=== PATIENT | female | born 1960 | race Caucasian/White ===

== ENCOUNTER 2020-07-18 17:06 | Inpatient (IN) | payer BC, SELFPAY ==
[~2020-07-18] VITALS: Ht 157.5 cm; Wt 72.6 kg
[2020-07-18 17:09] VITALS: Ht 157.5 cm; Wt 72.6 kg
[2020-07-18 18:01] LABS: PLATELET COUNT 192 x10^3mcL (179-408); RED CELL DISTRIBUTION WIDTH 12.7 % (12.3-17.7)
[2020-07-18 18:05] LABS: BASOPHIL % 2.5 % (0.2-1.3)
[2020-07-18 18:24] LABS: UA SPECIFIC GRAVITY >=1.030 (1.005-1.035); microscopic required? YES; urine erythrocyte NEGATIVE (NEGATIVE)
[2020-07-18 18:31] LABS: CALCIUM 8.4 mg/dL (8.5-10.1); CARBON DIOXIDE 24.6 mmol/L (21-32); CHLORIDE SERUM 97 mmol/L (98-107); GFR1 > 60 mL/min; GLUCOSE SERUM 241 mg/dL (74-106); SODIUM SERUM 134 mmol/L (136-145)
[2020-07-18 18:35] LABS: ALKALINE PHOSPHATASE 52 U/L (46-116); ALT/SGPT 47 U/L (14-59); AST/SGOT 45 U/L (15-37); BILIRUBIN TOTAL 0.5 mg/dL (0.20-1.00); C REACTIVE PROTEIN 5.9 mg/dL (<=0.9); LACTIC DEHYDROGENASE (LDH) 357 U/L (100-190); TOTAL PROTEIN, SERUM 7.3 g/dL (6.4-8.2)
[2020-07-18 18:45] LABS: ALBUMIN 3.3 g/dL (3.4-5.0)
[2020-07-18] MEDS ORDERED: GLU850 PO (19:38)
[2020-07-18] MEDS ORDERED: AZITHROMYCIN250 M1 PO (19:41)
[2020-07-18] MEDS ORDERED: TES100 PO (19:41)
[2020-07-18] MEDS ORDERED: BASAGLAR K100 UNIT/1 SQ (19:41)
[2020-07-19 10:42] LABS: BASOPHIL % 0.3 % (0.2-1.3); PLATELET COUNT 202 x10^3mcL (179-408); RED CELL DISTRIBUTION WIDTH 12.7 % (12.3-17.7)
[2020-07-19 10:56] LABS: CALCIUM 8.1 mg/dL (8.5-10.1); CARBON DIOXIDE 26.5 mmol/L (21-32); CHLORIDE SERUM 100 mmol/L (98-107); CREATININE SERUM 0.7 mg/dL (0.6-1.0); GFR1 > 60 mL/min; GLUCOSE SERUM 261 mg/dL (74-106); MAGNESIUM 1.8 mg/dL (1.8-2.4); PHOSPHOROUS 3.2 mg/dL (2.5-4.9); POTASSIUM SERUM 4.1 mmol/L (3.5-5.1); SODIUM SERUM 134 mmol/L (136-145)
[2020-07-19 13:33] VITALS: BP 118/966
[2020-07-19 13:48] VITALS: BP 123/75
[2020-07-19 17:16] VITALS: BP 115/66
[2020-07-19 22:04] VITALS: BP 110/59
[2020-07-20 05:42] VITALS: BP 108/64
[2020-07-20 08:40] VITALS: BP 90/60
[2020-07-20 09:21] LABS: BASOPHIL % 0.2 % (0.2-1.3); PLATELET COUNT 257 x10^3mcL (179-408); RED CELL DISTRIBUTION WIDTH 12.8 % (12.3-17.7)
[2020-07-20 09:31] LABS: CALCIUM 9.1 mg/dL (8.5-10.1); CARBON DIOXIDE 24.2 mmol/L (21-32); CHLORIDE SERUM 104 mmol/L (98-107); CREATININE SERUM 0.8 mg/dL (0.6-1.0); GFR1 > 60 mL/min; GLUCOSE SERUM 229 mg/dL (74-106); MAGNESIUM 2.1 mg/dL (1.8-2.4); PHOSPHOROUS 2.8 mg/dL (2.5-4.9); SODIUM SERUM 140 mmol/L (136-145)
[2020-07-20 10:29] LABS: BILIRUBIN DIRECT 0.09 mg/dL (0.0-0.2); BILIRUBIN TOTAL 0.33 mg/dL (0.20-1.00); TOTAL PROTEIN, SERUM 6.6 g/dL (6.4-8.2)
[2020-07-20 10:30] LABS: ALBUMIN 2.8 g/dL (3.4-5.0)
[2020-07-20 12:02] VITALS: BP 116/57
[2020-07-20 17:31] VITALS: BP 115/77
[2020-07-20 21:41] VITALS: BP 111/70
[2020-07-21 05:37] VITALS: BP 120/77
[2020-07-21 07:51] LABS: BASOPHIL % 0.2 % (0.2-1.3); PLATELET COUNT 284 x10^3mcL (179-408); RED CELL DISTRIBUTION WIDTH 12.8 % (12.3-17.7)
[2020-07-21 08:28] LABS: ALKALINE PHOSPHATASE 36 U/L (46-116); ALT/SGPT 42 U/L (14-59); AST/SGOT 24 U/L (15-37); BILIRUBIN DIRECT 0.08 mg/dL (0.0-0.2); BILIRUBIN TOTAL 0.33 mg/dL (0.20-1.00); CALCIUM 8.8 mg/dL (8.5-10.1); CARBON DIOXIDE 25.6 mmol/L (21-32); CHLORIDE SERUM 103 mmol/L (98-107); CREATININE SERUM 0.8 mg/dL (0.6-1.0); GFR1 > 60 mL/min; GLUCOSE SERUM 197 mg/dL (74-106); POTASSIUM SERUM 3.8 mmol/L (3.5-5.1); SODIUM SERUM 138 mmol/L (136-145); TOTAL PROTEIN, SERUM 6.2 g/dL (6.4-8.2)
[2020-07-21 08:30] LABS: ALBUMIN 2.7 g/dL (3.4-5.0)
[2020-07-21 09:45] VITALS: BP 113/61
[2020-07-21 20:04] VITALS: BP 97/60
[2020-07-22 05:01] VITALS: BP 115/73
[2020-07-22 07:08] LABS: PLATELET COUNT 327 x10^3mcL (179-408); RED CELL DISTRIBUTION WIDTH 12.8 % (12.3-17.7)
[2020-07-22 08:33] VITALS: BP 126/77
[2020-07-22 08:50] LABS: ALKALINE PHOSPHATASE 44 U/L (46-116); ALT/SGPT 56 U/L (14-59); AST/SGOT 33 U/L (15-37); BILIRUBIN DIRECT 0.08 mg/dL (0.0-0.2); BILIRUBIN TOTAL 0.38 mg/dL (0.20-1.00); C REACTIVE PROTEIN 0.6 mg/dL (<=0.9); CALCIUM 9.1 mg/dL (8.5-10.1); CARBON DIOXIDE 25.6 mmol/L (21-32); CHLORIDE SERUM 102 mmol/L (98-107); GFR1 > 60 mL/min; GLUCOSE SERUM 216 mg/dL (74-106); POTASSIUM SERUM 4.2 mmol/L (3.5-5.1); SODIUM SERUM 138 mmol/L (136-145); TOTAL PROTEIN, SERUM 6.8 g/dL (6.4-8.2)
[2020-07-22 12:22] VITALS: BP 113/72
[2020-07-22 16:39] VITALS: BP 96/54
[2020-07-22 20:36] VITALS: BP 108/68
[2020-07-23 05:40] VITALS: BP 109/67
[2020-07-23 05:51] LABS: BASOPHIL % 0.7 % (0.2-1.3); PLATELET COUNT 361 x10^3mcL (179-408)
[2020-07-23 06:06] LABS: C REACTIVE PROTEIN 0.4 mg/dL (<=0.9); CALCIUM 8.5 mg/dL (8.5-10.1); CARBON DIOXIDE 27.1 mmol/L (21-32); CHLORIDE SERUM 97 mmol/L (98-107); CREATININE SERUM 0.8 mg/dL (0.6-1.0); GFR1 > 60 mL/min; GLUCOSE SERUM 189 mg/dL (74-106); POTASSIUM SERUM 3.7 mmol/L (3.5-5.1); SODIUM SERUM 127 mmol/L (136-145)
[2020-07-23 06:34] LABS: BILIRUBIN DIRECT 0.09 mg/dL (0.0-0.2); BILIRUBIN TOTAL 0.35 mg/dL (0.20-1.00); TOTAL PROTEIN, SERUM 6.8 g/dL (6.4-8.2)
[2020-07-23 08:56] VITALS: BP 112/69
[2020-07-23] MEDS ORDERED: ZES5 PO (09:02)
[2020-07-23] MEDS ORDERED: VENTOLIN H0.09 MG/A1 INH (09:02)
[2020-07-23] MEDS ORDERED: MUCINEX600 MG PO (09:03)
[2020-07-23] MEDS ORDERED: ZINC SULFATE220 MG PO (09:03)
[2020-07-23] MEDS ORDERED: DECADRON6 MG PO (09:04)
[2020-07-23] MEDS ORDERED: VITAMIN D325 MC1 PO (09:05)
[2020-07-23] MEDS ORDERED: VITC PO (09:05)
[2020-07-23] MEDS ORDERED: ELIQUIS2.5 MG PO (09:06)
[2020-07-23 13:54] VITALS: BP 112/70
[2020-07-23 14:02] VITALS: BP 112/70
[2020-07-23 17:10] VITALS: BP 103/64
[2020-07-23 20:25] VITALS: BP 103/67
[2020-07-24 05:25] VITALS: BP 111/73
[2020-07-24 12:10] VITALS: BP 102/69
[2020-07-24 12:16] VITALS: BP 102/69
[2020-07-24] MEDS ORDERED: ZESTRIL2.5 MG PO (12:37)
== END 2020-07-24 13:41 | disposition home or self-care (01) | DRG 871 ==
LOC: ED 17:06 → DU 18:37
PROVIDERS: Family Medicine; Specialist; ADMIT Internal Medicine; ATTEND Internal Medicine
PROC: XW033E5 Introduction of Remdesivir Anti-infective into Peripheral Vein, Percutaneous Approach, New Technology Group 5 (ICD-10-PCS; principal; 2020-07-19)
DX: A41.89 Other specified sepsis (principal); U07.1 COVID-19; J96.01 Acute respiratory failure with hypoxia; E87.1 Hypo-osmolality and hyponatremia; I10 Essential (primary) hypertension; E66.01 Morbid (severe) obesity due to excess calories; Z71.3 Dietary counseling and surveillance; Z79.899 Other long term (current) drug therapy; Z79.4 Long term (current) use of insulin; E11.65 Type 2 diabetes mellitus with hyperglycemia; E83.51 Hypocalcemia; Z68.31 Body mass index [BMI] 31.0-31.9, adult
CPT/HCPCS: 36600; 82962; 83880; 85378; 87804; G0378; J0456; J0696; J1100; J1644; J3535; J7030; J7050; U0003